=== PATIENT | female | born 1935 | race Caucasian/White ===

== ENCOUNTER 2018-06-04 09:28 | Outpatient (CLI) | payer OTHER, SELFPAY ==
[2018-06-04] VITALS (13 sets, daily range): BP systolic 123–178; BP diastolic 65–90; PULSE 60–72; RESP 16–20; TEMP 36.2; O2SAT 95–98
--- NOTE | 2018-06-04 09:33 | DI.RAD.S_ITS ---
PROCEDURE: PAIN L/S FACET INJ/BLK 1ST GAIL COMPARISON: None. INDICATIONS: Lumbosacral spondylosis FINDINGS: Right-sided L4-5 and L5-S1 facet joint region needle tip localization is documented, as is left-sided localization. IMPRESSION: Bilateral L4-5 and L5-S1 facet joint region needle tip localization for epidural steroid injection. Dictated by: Ari Freedman M.D. on 06/04/2018 at 16:15 Approved by: Ari Freedmna M.D. on 06/04/2018 at 16:16
--- NOTE | 2018-06-04 10:07 | PM.PROC.1 ---
Procedures Date/Time Date of procedure: 06/04/18 Time of procedure: 10:07 General Procedure description: PREOP DIAGNOSIS 1. FACET ARTHROPATHY 2. AXIAL LBP 3. MULTILEVEL DDD POST OP DIAGNOSIS 1. FACET ARTHROPATHY 2. AXIAL LBP 3. MULTILEVEL DDD PROCEDURES 1. FLUORSCOPICALLY GUIDED CONTRAST CONTROLLED FACET JOINT INJECTIONS BILATERAL L4/5, L5/S1 PHYSICIAN: Yossi Ahmadi DO INDICATIONS: [place] is referred by Dr. Shirley for treatment of Axial LBP FINDINGS Multilevel Facet Arthropathy with Clinically significant axial LBP DESCRIPTION OF PROCEDURE Fluoroscopically guided, contrast-controlled bilateral L4/5, L5/S1 facet joint injections. Following denial of allergy and review of potential side effects and complications, including, but not necessarily limited to, infection, allergic reaction, local tissue breakdown, stroke, temporary or permanent nerve injury, paralysis, and possible , the patient indicated that the patient understood and agreed to proceed. An informed consent document was signed by the patient, witnessed by a nurse, and placed in the patient's chart. Additionally, other treatment options including medications, modalities, and physical therapy were reviewed with the patient. After review of previous anaesthesic history and IV conscious sedation the patient was deemed safe to proceed with todays procedure with IV conscious sedation as ASA class II designation. Safety time-out was performed to confirm patient ID, procedure to be performed and site of procedure. IV sedation was accomplished with a combination of 2mg of Versed was administered by the RN after DO order, titrated to patient comfort during the course of the procedure while the patient remained responsive to all verbal commands. In the prone position, following sterile prep and drape of the lumbar region, the posterior aspect of the L4/5, L5/S1 facet joints were identified fluoroscopically. The skin was anesthetized via a 25-gauge 1.5-inch needle with 1% lidocaine solution into the corresponding facet joints. At this point, a 22-gauge 3.5-inch spinal needle was atraumatically introduced and advanced under fluoroscopic guidance into the corresponding facet joints. Following negative aspiration, injections of approximately 0.2-cc of Isovue 200 confirmed interarticular placement without vascular uptake. The identical procedure was then performed at the L4/5, L5/S1 facet joints on the left. Radiological data, including multiple fluoroscopic views of the lumbosacral spine, reveal a spinal needle at the L4/5, L5/S1 facet joints bilaterally. Subsequent views show flow of contrast material both superiorly and inferiorly within the joint space without vascular or intrathecal uptake. At this point, a total of 0.5 cc including a mixture of 0.25 cc Marcaine and 0.25 cc betamethasone was injected without complication into each of the corresponding facet joints. The patient tolerated the procedure well without signs or symptoms of complications prior to transfer to the recovery area continued monitoring without incident. The patient was then transferred to the recovery area where they were observed for an appropriate period of time after the injection. The patient reported a VAS score of 7 prior to the procedure and a post-procedure VAS of 0. Total Fluoroscopy Time: 20.3 seconds Total Conscious Sedation Time: 24min POST OP INSTRUCTIONS The patient was provided a Pain Log to continue to record their response to the target-specific procedure prior to follow-up visit with their referring physician. Additionally, specific post-injection care instructions and a contact number to our office were provided if concerns arise regarding possible complications associated with the procedure are suspected. Yossi Ahmadi DO Complications: none
[2018-06-04] MEDS: MIDAZOLAM 5 MG/5 ML VIAL IV (10:42)
[2018-06-04] MEDS: LIDOCAINE 1% 20 ML INJ 10 ML INJ (10:44)
[2018-06-04] MEDS: BUPIVACAINE 0.5% (PF) VIAL 5 ML INJ (10:44)
[2018-06-04] MEDS: IOPAMIDOL 15 ML VIAL 3 ML INJ (10:44)
[2018-06-04] MEDS: BETAMETHASONE 30 MG/5 ML MDV 12 MG INJ (10:44)
--- NOTE | 2018-06-05 12:51 | PC.NURSE ---
FOLLOW UP CALL MADE. PT DENIES QUESTIONS/CONCERNS AND STATES PAIN IS DECREASED AFTER PROCEDURE.
== END 2018-06-04 11:50 ==
PROVIDERS: PCP Nurse Practitioner Family; Visit Provider Physical Medicine & Rehabilitation
DX: M48.062 Spinal stenosis, lumbar region with neurogenic claudication (principal); M47.817 Spondylosis without myelopathy or radiculopathy, lumbosacral region; M47.816 Spondylosis without myelopathy or radiculopathy, lumbar region; M51.36 Other intervertebral disc degeneration, lumbar region; M51.37 Other intervertebral disc degeneration, lumbosacral region; M54.5 Low back pain
CPT/HCPCS: 64493; 99152; J0702; J2250

== ENCOUNTER → 2020-10-06 08:26 | Outpatient (CLI) | payer OTHER, SELFPAY ==
--- NOTE | 2020-10-06 08:30 | DI.RAD.S_ITS ---
PROCEDURE: XR LUMBAR SPINE MIN 4V INDICATIONS: low back pain TECHNIQUE: 5 views of the lumbar spine were acquired. COMPARISON: None. FINDINGS: Bones: 5 nonrib-bearing vertebrae are present. There is mildly abnormal bony alignment. No vertebral body compression fractures. No suspicious bony lesions. Note is made of degenerative disc disease that is moderate to moderately severe at L3-4 and moderate at L4-5. Facet osteoarthritis becomes progressively more prominent from L3 inferiorly and most pronounced at L4-5 and L5-S1. There is grade 1-2 anterolisthesis of L4 on L5, and likelihood of significant spinal and foraminal stenosis both at this level and at L5-S1. Soft tissues: Overlying bowel gas pattern is normal. No suspicious soft tissue calcifications. Oblique images: No pars defects. IMPRESSION: No trauma found. Chronic degenerative disc disease and facet osteoarthritis most pronounced from L3 through S1 and with associated grade 1-grade 2 anterolisthesis of L4 on L5. Facet osteoarthritis also is relatively prominent at the lower 2 levels of the LS spine with likelihood of significant spinal and foraminal stenosis at L4-5 and L5-S1. Dictated by: Ari Freedman M.D. on 10/06/2020 at 11:42 Approved by: Ari Freedman M.D. on 10/06/2020 at 11:43
== END ==
PROVIDERS: PCP Nurse Practitioner Family; Referring Provider Physical Medicine & Rehabilitation; Visit Provider Physical Medicine & Rehabilitation
DX: M47.817 Spondylosis without myelopathy or radiculopathy, lumbosacral region (principal); M47.816 Spondylosis without myelopathy or radiculopathy, lumbar region; M54.5 Low back pain; M51.36 Other intervertebral disc degeneration, lumbar region; M51.37 Other intervertebral disc degeneration, lumbosacral region; M43.16 Spondylolisthesis, lumbar region
CPT/HCPCS: 72110; 99214

== ENCOUNTER → 2020-10-22 11:00 | Outpatient (CLI) | payer OTHER, SELFPAY ==
--- NOTE | 2020-10-22 11:02 | DI.MRI.S_ITS ---
PROCEDURE: MR LUMBAR SPINE WO CON INDICATIONS: facet arthropathy TECHNIQUE: Noncontrast sagittal T1 spin echo and T2 fast echo, sagittal STIR, axial T1 and T2 fast spin echo through the lumbar spine. In cases with scoliosis, additional coronal T2 fast spin echo may be performed. COMPARISON: [facility] , MR, LUMBAR SPINE W/O CONTRAST, 01/04/2010, 7:59. [facility], CR, XR LUMBAR SPINE MIN 4V, 10/06/2020, 8:35. FINDINGS: Image quality: Diagnostic, with note made of motion artifact. Alignment and Curvature: Mild grade 1 anterolisthesis is seen at the L4-L5 level. Minimal anterolisthesis is seen at the L3-L4 and L5-S1 levels. Bone Marrow: Marrow is of normal overall signal. Scattered foci are seen, which are hyperintense on T1-weighted and T2-weighted imaging, which are most consistent with benign vertebral body hemangiomas. No acute vertebral body compression fractures. Spinal Cord: Conus medullaris terminates at the L1 level. Visualized cord demonstrates normal signal and size. Paraspinous Soft Tissues: No paravertebral masses. Incidental note is made of a circumaortic left renal vein. T12-L1: The disc height is well-preserved. Loss of disc signal is seen at this level. No significant neural foraminal or central canal narrowing can be seen. L1-L2: The disc height is well-preserved. Loss of disc signal is seen at this level. Mild generalized disc bulge is seen. Mild facet joint hypertrophy is seen. Mild bilateral neural foraminal narrowing is seen. No significant central canal narrowing is seen. When comparison is made with the prior examination, these findings are similar. L2-L3: The disc height is well-preserved. Loss of disc signal is seen at this level. Mild to moderate disc bulge is seen. Prior right hemilaminectomy change is seen at this level. At least moderate facet hypertrophy is seen. Fluid is seen within the facet joints themselves. Moderate bilateral neural foraminal narrowing is seen, right worse than left. No significant central canal narrowing is seen. The postoperative change is new compared to the prior examination. L3-L4: Moderate to severe loss of disc height and disc signal can be seen. At least moderate disc bulge is seen. Moderate facet joint hypertrophy is seen. Right hemilaminectomy change can be seen. There is at least moderate bilateral neural foraminal narrowing seen. There is a mild degree of compression seen upon the exiting nerve roots, right worse than left. No central canal narrowing is seen. The degree of central canal narrowing is improved compared to 2010. L4-L5: [id number] loss of disc height and disc signal can be seen at this level. At least moderate disc bulge is seen, with a central disc protrusion. Prominent facet hypertrophy is seen at this level. There is moderate to severe bilateral neural foraminal narrowing seen. There is a degree of compression seen upon the exiting nerve roots. Moderate central canal narrowing is seen. These imaging findings have progressed compared to the prior study. L5-S1: The disc height is well-preserved. Loss of disc signal is seen at this level. Mild to moderate disc bulge is seen. Moderate facet joint hypertrophy is seen. Mild bilateral neural foraminal narrowing is seen. Moderate central canal narrowing is seen. Compared to 2010, the degenerative changes are slightly progressed. 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 IMPRESSION: Since 2010, there has been right hemilaminectomy change at L2-L3 and L3-L4. There is improvement in the degree of central canal narrowing at the L3-L4 level compared to 2010. The degenerative changes are overall progressed, particularly at the L4-L5 level compared to 2010. Dictated by: Osman Polanco M.D. on 10/22/2020 at 11:02 Approved by: Osman Polanco M.D. on 10/22/2020 at 11:09
== END ==
PROVIDERS: PCP Nurse Practitioner Family; Referring Provider Physical Medicine & Rehabilitation; Visit Provider Physical Medicine & Rehabilitation
DX: M47.816 Spondylosis without myelopathy or radiculopathy, lumbar region (principal); M48.062 Spinal stenosis, lumbar region with neurogenic claudication
CPT/HCPCS: 72148

== ENCOUNTER → 2020-11-02 14:05 | Outpatient (CLI) | payer OTHER, SELFPAY ==
[2020-11-02 15:53] LABS: COVID19 -Nasal RAPID Negative (Negative)
== END ==
PROVIDERS: PCP Nurse Practitioner Family; Visit Provider Physical Medicine & Rehabilitation
DX: Z20.822 Contact with and (suspected) exposure to COVID-19 (principal)
CPT/HCPCS: 87635; C9803

== ENCOUNTER 2020-11-04 14:03 | Outpatient (CLI) | payer OTHER, SELFPAY ==
[2020-11-04] VITALS (11 sets, daily range): BP systolic 139–212; BP diastolic 72–100; PULSE 61–67; RESP 10–22; TEMP 36.3; O2SAT 92–95
--- NOTE | 2020-11-04 14:06 | DI.RAD.S_ITS ---
PROCEDURE: PAIN L/S FACET INJ/BLK 1ST GAIL COMPARISON: [facility], XA, PAIN L/S FACET INJ/BLK 1ST GAIL, 06/04/2018, 10:40. INDICATIONS: SPONDYLOSIS FINDINGS: 3 separate needle tips have been placed, at the L4, L5, and S1 levels for medial branch block procedures at those 3 levels on the right. IMPRESSION: Successful needle tip localization for right-sided 3 levels of medial branch block procedures. Dictated by: Ari Freedman M.D. on 11/04/2020 at 17:02 Approved by: Ari Freedman M.D. on 11/04/2020 at 17:05
[2020-11-04] MEDS: fentaNYL 100 MCG/2 ML INJ 50 MCG IV (15:11)
[2020-11-04] MEDS: MIDAZOLAM 5 MG/5 ML VIAL IV (15:11)
[2020-11-04] MEDS: IOPAMIDOL 15 ML VIAL 3 ML INJ (15:17)
[2020-11-04] MEDS: LIDOCAINE 1% 20 ML 10 ML INJ (15:18)
[2020-11-04] MEDS: BUPIVACAINE 0.5% (PF) VIAL 5 ML INJ (15:18)
--- NOTE | 2020-11-04 15:24 | P.PCN_ITS ---
Date/Time/Diagnoses Date of procedure: 11/04/20 Time of procedure: 15:25 Pre-procedure diagnosis: 1. FACET ARTHROPATHY Post-procedure diagnosis: same Procedure Notes Procedure: 1. BILATERAL- L4, L5 and S1 DIAGNOSTIC MB BLOCKS with LA Anesthetic Indications: [place] is referred by RALPH Shirley for treatment of Bilateral Axial LBP. Physician: Yossi Ahmadi Total Fluoroscopy time (seconds): 10 Total sedation minutes: 11 Complications: none Procedure in detail & Post-procedure care: DESCRIPTION OF PROCEDURE Fluoroscopically guided, contrast-controlled bilateral L4, L5 and S1 medial branch blocks with 0.5cc of 0.5% Marcaine. Following review of allergy and review of potential side effects and complications, including, but not necessarily limited to, infection, allergic reaction, local tissue breakdown, nerve injury, paralysis, stroke and possible , the patient indicated that the patient understood and agreed to proceed. An informed consent document was signed by the patient, witnessed by a nurse, and placed in the patient's chart. After review of previous anaesthesic history and IV conscious sedation the patient was deemed safe to proceed with today's procedure with IV conscious sedation as ASA class II designation. Safety time-out was performed to confirm patient ID, procedure to be performed and site of procedure. IV sedation was accomplished with a combination of 2mg of Versed and 50mcg of Fentanyl was administered by the RN after DO order, titrated to patient comfort during the course of the procedure while the patient remained responsive to all verbal commands In the prone position, following sterile prep and drape of the lumbar region, the right L4, L5 and S1 anatomical location of the medial branch of the dorsal ramus was identified fluoroscopically. Subsequently an anesthetic skin wheal using 1% lidocaine solution was initiated at each of the anatomical spots. Subsequently then a 22-gauge 3.5-inch spinal needle was atraumatically introduced and advanced under fluoroscopic guidance at each of the corresponding sites at the right L4, L5 and S1 MB. After negative aspiration, 0.2cc of Isovue 200 was injected, confirming placement without vascular or intrathecal uptake. Subsequently then 0.5cc of 0.5% Marcaine solution was injected at each of the corresponding sites at the right L4, L5 and S1 medial branch locations. The identical procedure was replicated on the left. The patient tolerated the procedure well without signs or symptoms of complications prior to transfer to the recovery area continued monitoring without incident. Post-procedure, the patient was monitored initiating provocative activities to measure the amount of relief from block of the facetogenic pain. The patient reported a VAS of 7 prior to the procedure and a post-procedure VAS of 1. It has been a pleasure to assist in the diagnostic and therapeutic care of your patient. POST OP INSTRUCTIONS The patient was provided with a Pain Log to complete over the next several hours and subsequent days prior to the patient's follow up with the ordering physician. If the patient has neonatal pediatric nurse relief to the solution applied, then they may be a candidate for medial branch rhizotomy. The patient is aware, was provided, once again, with a Pain Log and will follow up with the referring physician for review and clinical correlation
--- NOTE | 2020-11-04 16:28 | PC.NURSE ---
At d/c patient was steady on feet able to take a few steps, tolerated fluids and cookies, denies any pain or discomfort.
== END 2020-11-04 16:20 | disposition home or self-care (01) ==
LOC: RAD 14:05
PROVIDERS: PCP Nurse Practitioner Family; Referring Provider Physical Medicine & Rehabilitation; Visit Provider Physical Medicine & Rehabilitation
DX: M47.816 Spondylosis without myelopathy or radiculopathy, lumbar region (principal); M47.817 Spondylosis without myelopathy or radiculopathy, lumbosacral region; M54.5 Low back pain
CPT/HCPCS: 64493; 64494; 64495; 99152; J2250; J3010